=== PATIENT | male | born 2005 | race Caucasian/White ===

== ENCOUNTER 2025-09-09 12:31 | Emergency (ER) | payer SELFPAY ==
[2025-09-09 12:33] VITALS: BMI 23.8
[2025-09-09 12:41] VITALS: BP 143/84; PULSE 73; RESP 17; TEMP 36.8; O2SAT 97
--- NOTE | 2025-09-09 13:10 | EDNOTE_ITS ---
<Statement entered by Kalyani Hussein MD - 09/09/25 14:45> As co-signing physician, I was present and available for consult prn. I concur with the plan and care as documented by the midlevel provider. Lower Extremity Injury RME/HPI General Chief Complaint: Ankle/Foot Injury Stated Complaint: L BIG TOE INGROWN TOENAIL X3 MONTHS Time Seen by Provider: 09/09/25 12:34 Arrival date/time: 09/09/25 12:31 19-year-old male patient with no past medical history, came in for evaluation regarding Ingrown toenail. Patient's been having ingrown toenail for the last 3 months, getting worst for the last few days. Patient was seen here in different emergency room last month, and was given antibiotic with significant improvement. Patient denies any fever denies any other complaints no medication was taken prior to ER visit. Related Data Previous Rx's ?Medication ?Instructions ?Recorded amoxicillin 875 mg-potassium 1 tab PO BID #14 tabs 12/03 clavulanate 125 mg tablet ibuprofen 800 mg tablet 800 mg PO Q8H PRN pain #30 t abs 09/09/25 Allergies Allergy/AdvReac Type Severity Reaction Status Date / Time No Known Allergies Allergy Verified 09/09/25 12:36 Review of Systems Review of Systems Narrative Review of Systems: Review of system reviewed and within normal limits except mentioned in HPI ED Exam Narrative Physical exam: VITAL SIGNS: Reviewed. GENERAL APPEARANCE: Alert and interactive, follows commands, no acute distress, HEAD AND FACE: Non-traumatic. ENT: PERRL, pink conjunctivitis, eyelid no trauma, Mucous membrane moist. RECTAL: Deferred. GENITAL: Deferred. NEUROLOGICAL: Gross motor function intact sensory function intact, Appropriate for age. MUSCULOSKELETAL: low back nontender, full range of motion. EXTREMITIES: Redness noted to the right great to lateral aspect with ingrowing of the toenail no pus drainage with tenderness, full range of motion. SKIN: Color pink, dry, no rash, no lacerations, no abrasions, no contusions. LYMPHATICS: Deferred. Course Quality Measures none Vital Signs Vital signs: Vital Signs Temperature 98.2 F 09/09/25 12:41 Pulse Rate 73 09/09/25 12:41 Respiratory Rate 17 09/09/25 12:41 Blood Pressure 143/84 H 09/09/25 12:41 Pulse Oximetry (%) 97 09/09/25 12:41 Oxygen Delivery Method Room Air 09/09/25 12:41 Extremity Injury, Lower MDM Narrative MDM Narrative:: 25 12:31 19-year-old male patient with no past medical history, came in for evaluation regarding Ingrown toenail. Patient's been having ingrown toenail for the last 3 months, getting worst for the last few days. Patient was seen here in different emergency room last month, and was given antibiotic with significant improvement. Patient denies any fever denies any other complaints no medication was taken prior to ER visit. Clinically patient is having infected ingrown toenail. Patient was given antibiotic prescription. Patient was advised to follow-up with podiatry for definitive management of the ingrown toenail. Patient and family agrees with the plan. Stable for discharge home Patient data External records reviewed:: None Clinical information provided by:: patient Social determinants that could affect healthcare access:: none Patient has the following chronic illnesses:: None How is presenting disease/condition affected by chronic disease/condition?: no chronic disease Evaluation data The following diagnostics were reviewed and interpreted by me:: other (specify) (None) Lab and/or radiology exams considered but not ordered:: None Interpretation Summary: None Medications / Prescriptions Medications or Prescriptions considered but not ordered:: None Medication administrations:: None Consultations Consultation(s) initiated? (list below): No Diagnosis Extremity Injury, Lower Differential Diagnosis: other (Ingrown toenail, infected ingrown toenail, great toe cellulitis) Most likely diagnosis given after review of the tests above:: Infected ingrown toenail Admission Indicated Admission indicated?: not indicated Admission Request Was there a request for admission?: No Disposition Plan Disposition Plan: Discharge Discharge Attestation Discharge Attestation: The patient and all family members were given an opportunity to ask questions and understood the discharge instructions. Discharge instructions specifically effects, indications for sooner follow up or return to the emergency department, and the expected course of current diagnosis. Patient condition: Stable Discharge Plan Plan Patient Disposition: HOME (Self Care) Discharge Disposition comment: stable Prescriptions/Referrals Prescriptions/Med Rec: New amoxicillin-pot clavulanate 875-125 mg tablet 1 tab PO BID Qty: 14 0RF ibuprofen 800 mg tablet 800 mg PO Q8H PRN (Reason: pain) Qty: 30 0RF Problem List Clinical Impression: Ingrowing toenail with infection Patient/Caregiver Discharge Instructions Discharge Activity: activity as tolerated Education Materials: ED Toenail Ingrown Infec Abx Onl Additional Instructions: Thank you for the opportunity for serving you today. You are stable for discharged . You are advised to: Follow-up with your PCP in 1 to 2 days, ask for referral to podiatry Return to ED for worsening of symptoms Increase oral fluids Take medication as prescribed Soak your foot with warm water for 15 minutes 3 times a day as needed Print Language: Malay Stand Alone Forms: Mehreen Award Info., Patient Portal Info Letter
== END 2025-09-09 13:17 | disposition home or self-care (01) ==
PROVIDERS: Emergency Provider Emergency Medicine
DX: L60.0 Ingrowing nail (principal); L03.032 Cellulitis of left toe
CPT/HCPCS: 99281